=== PATIENT | male | born 1945 | race Hispanic/Latino ===

== ENCOUNTER 2019-11-21 22:33 | Inpatient (IN) | payer MEDICARE, OTHER ==
[~2019-11-21] VITALS: Ht 165.1 cm; Wt 79.3 kg
[2019-11-21 23:01] LABS: BASOPHILS % (AUTO) 0.6 % (0.0-5.0); EOSINOPHILS % (AUTO) 4.6 % (0.0-8.0); HEMATOCRIT 39.9 % (42-54); LYMPHOCYTES % (AUTO) 30.3 % (21.0-51.0); MEAN CORPUSCULAR HEMOGLOBIN 32.9 pg (27.0-33.0); MEAN CORPUSCULAR HGB CONC 33.3 g/dL (32.0-36.0); MEAN CORPUSCULAR VOLUME 98.8 fL (79-99); MONOCYTES % (AUTO) 8.3 % (3.0-13.0); NEUTROPHILS % (AUTO) 55.8 % (40.0-77.0); PLATELET COUNT (AUTO) 199 K/uL (130-400); RED BLOOD CELL COUNT(AUTO) 4.04 MIL/uL (4.50-6.20); RED CELL DISTRIBUTION WIDTH 12.6 % (11.0-15.5); WHITE BLOOD COUNT (AUTO) 6.7 K/uL (4.8-10.8)
[2019-11-21 23:20] LABS: CREATININE 0.9 mg/dL (0.5-1.5); POTASSIUM 3.8 mmol/L (3.5-5.1)
[2019-11-21 23:21] LABS: INR 0.87 (0.85-1.15); PARTIAL THROMBOPLASTIN TIME 24.3 SEC (26.3-35.5); PROTHROMBIN TIME 9.4 SEC (9.6-11.6)
[2019-11-21 23:25] LABS: ALBUMIN 3.5 g/dL (3.5-5.0); BILIRUBIN,TOTAL 0.2 mg/dL (0.2-1.0); TOTAL PROTEIN, SERUM 7.3 g/dL (6.0-8.3)
[2019-11-21 23:46] LABS: APPEARANCE,URINE Clear (CLEAR); BILIRUBIN,URINE Negative (NEGATIVE); COLOR,URINE Yellow (YELLOW); GLUCOSE, URINE (UA) 500 mg/dL (NEGATIVE); KETONES,URINE Trace mg/dL (NEGATIVE); LEUKOCYTE ESTERASE ,URINE Negative (NEGATIVE); NITRATE,URINE Negative (NEGATIVE); OCCULT BLOOD,URINE Negative (NEGATIVE); PH,URINE 5.5 (5.0-8.0); PROTEIN,URINE Negative (NEGATIVE)
[2019-11-22] MEDS ORDERED: ASPIRIN 81MG TAB.CHEW ONE (00:15)
[2019-11-22 00:31] LABS: BACTERIA,URINE Few /HPF (None Seen); MUCUS,URINE Rare LPF (None Seen); RBC,URINE 0-1 /HPF (0-1); SQUAMOUS EPITHELIAL CELL,UR 0-2 /HPF (0-2)
[2019-11-22] MEDS ORDERED: ONDANSETRON HCL 4 MG/2 ML VIAL IV PRN (04:00)
[2019-11-22 05:00] VITALS: BP 165/71
[2019-11-22] MEDS ORDERED: METF-444 PO (05:48)
[2019-11-22] MEDS ORDERED: INSU100I35 SQ (05:48)
[2019-11-22 07:17] VITALS: BP 154/60
[2019-11-22] MEDS ORDERED: FAMOTIDINE/PF 20 MG/2 ML VIAL IV SCH (09:00)
[2019-11-22 10:42] VITALS: BP 162/86
[2019-11-22 15:49] VITALS: BP 186/82
[2019-11-22 16:59] LABS: CHOLESTEROL 154 mg/dL (<200); HDL CHOLESTEROL 99 mg/dL (29-71); LDL DIRECT 91 mg/dL (0-99); TRIGLYCERIDES 190 mg/dL (30-200)
[2019-11-22 17:18] LABS: HEMOGLOBIN A1C 7.9 % (4.0-6.0)
[2019-11-22 19:56] VITALS: BP 155/79
[2019-11-22] MEDS: FAMOTIDINE/PF 20 MG/2 ML VIAL IV SCH (21:03)
[2019-11-22] MEDS: ATORVASTATIN CALCIUM 20 MG TABLET PO SCH (21:04)
[2019-11-23] VITALS (7 sets, daily range): BP systolic 162–177; BP diastolic 57–81
[2019-11-23 04:46] LABS: BASOPHILS % (AUTO) 0.5 % (0.0-5.0); EOSINOPHILS % (AUTO) 3.6 % (0.0-8.0); HEMATOCRIT 38.4 % (42-54); LYMPHOCYTES % (AUTO) 26.4 % (21.0-51.0); MEAN CORPUSCULAR HEMOGLOBIN 33.2 pg (27.0-33.0); MEAN CORPUSCULAR HGB CONC 33.3 g/dL (32.0-36.0); MEAN CORPUSCULAR VOLUME 99.5 fL (79-99); MONOCYTES % (AUTO) 7.2 % (3.0-13.0); NEUTROPHILS % (AUTO) 61.8 % (40.0-77.0); PLATELET COUNT (AUTO) 174 K/uL (130-400); RED BLOOD CELL COUNT(AUTO) 3.86 MIL/uL (4.50-6.20); RED CELL DISTRIBUTION WIDTH 12.4 % (11.0-15.5); WHITE BLOOD COUNT (AUTO) 5.8 K/uL (4.8-10.8)
[2019-11-23 04:50] LABS: CREATININE 0.6 mg/dL (0.5-1.5); POTASSIUM 3.7 mmol/L (3.5-5.1)
[2019-11-23] MEDS: FAMOTIDINE/PF 20 MG/2 ML VIAL IV SCH ×2 (09:00→20:56)
[2019-11-23] MEDS: INSULIN HUMULIN 70/30 100 UNIT/ML 3ML SQ SCH (17:30)
[2019-11-23] MEDS: METFORMIN HCL 500 MG TABLET PO SCH (17:31)
[2019-11-23] MEDS: ATORVASTATIN CALCIUM 20 MG TABLET PO SCH (20:55)
[2019-11-24 03:54] VITALS: BP 164/66
[2019-11-24] MEDS: INSULIN HUMULIN 70/30 100 UNIT/ML 3ML SQ SCH ×2 (07:30→16:35)
[2019-11-24 08:00] VITALS: BP 158/67
[2019-11-24] MEDS: FAMOTIDINE/PF 20 MG/2 ML VIAL IV SCH ×2 (09:30→21:02)
[2019-11-24] MEDS: METFORMIN HCL 500 MG TABLET PO SCH ×2 (09:30→16:33)
[2019-11-24 11:43] VITALS: BP 151/62
[2019-11-24] MEDS: CLOPIDOGREL BISULFATE 75 MG TAB PO SCH (12:15)
[2019-11-24] MEDS: ASPIRIN 325MG EC TAB 325 MG TABLET.DR PO SCH (12:16)
[2019-11-24 16:00] VITALS: BP 147/56
[2019-11-24 16:59] LABS: BASOPHILS % (AUTO) 0.5 % (0.0-5.0); EOSINOPHILS % (AUTO) 2.4 % (0.0-8.0); HEMATOCRIT 42.8 % (42-54); LYMPHOCYTES % (AUTO) 24.2 % (21.0-51.0); MEAN CORPUSCULAR HGB CONC 33.4 g/dL (32.0-36.0); MEAN CORPUSCULAR VOLUME 98.8 fL (79-99); MONOCYTES % (AUTO) 6.9 % (3.0-13.0); NEUTROPHILS % (AUTO) 65.4 % (40.0-77.0); PLATELET COUNT (AUTO) 184 K/uL (130-400); RED BLOOD CELL COUNT(AUTO) 4.33 MIL/uL (4.50-6.20); RED CELL DISTRIBUTION WIDTH 12.3 % (11.0-15.5); WHITE BLOOD COUNT (AUTO) 7.8 K/uL (4.8-10.8)
[2019-11-24 19:00] VITALS: BP 159/55
[2019-11-24] MEDS ORDERED: ATORVASTATIN CALCIUM 40 MG TABLET PO SCH (21:00)
[2019-11-25] VITALS: BP 152/81
[2019-11-25 04:00] VITALS: BP 148/66
[2019-11-25] MEDS: INSULIN HUMULIN 70/30 100 UNIT/ML 3ML SQ SCH ×2 (07:15→18:00)
[2019-11-25 07:21] LABS: ALBUMIN 3.2 g/dL (3.5-5.0); BILIRUBIN,TOTAL 0.5 mg/dL (0.2-1.0); CREATININE 0.8 mg/dL (0.5-1.5); POTASSIUM 3.6 mmol/L (3.5-5.1); TOTAL PROTEIN, SERUM 6.8 g/dL (6.0-8.3)
[2019-11-25 08:09] VITALS: BP 158/70
[2019-11-25] MEDS: ASPIRIN 325MG EC TAB 325 MG TABLET.DR PO SCH (08:40)
[2019-11-25] MEDS: FAMOTIDINE/PF 20 MG/2 ML VIAL IV SCH (08:40)
[2019-11-25] MEDS: METFORMIN HCL 500 MG TABLET PO SCH ×2 (08:40→17:58)
[2019-11-25] MEDS: CLOPIDOGREL BISULFATE 75 MG TAB PO SCH (08:41)
[2019-11-25 12:27] VITALS: BP 146/85
[2019-11-25 16:05] VITALS: BP 177/73
[2019-11-25] MEDS ORDERED: CLOP75TA14 PO (18:51)
[2019-11-25] MEDS ORDERED: ASPI-1026 PO (18:51)
[2019-11-25] MEDS ORDERED: ATOR20TA65 PO (21:09)
== END 2019-11-25 19:44 | disposition home or self-care (01) | DRG 66 ==
LOC: EDH 22:33 → EDHIP 11-22 03:52 → 3CH 11-22 04:47
PROVIDERS: ADMIT Hospitalist; ATTEND Hospitalist
DX: I63.9 Cerebral infarction, unspecified (principal); I10 Essential (primary) hypertension; E11.65 Type 2 diabetes mellitus with hyperglycemia; Z87.891 Personal history of nicotine dependence; Z79.02 Long term (current) use of antithrombotics/antiplatelets; Z89.9 Acquired absence of limb, unspecified
CPT/HCPCS: 36415; 70450; 70551; 71045; 80048; 80053; 80061; 81001; 82550; 82948; 83036; 83605; 83690; 83880; 84484; 85025; 85610; 85730; 92507; 92522; 92610; 93005; 93306; 93356; 93880; 97039; G0378; J1815; J3490

== ENCOUNTER → 2023-07-10 | Outpatient (CLI) | payer OTHER ==
[~2023-07-10] MED LIST: ASPI-1026 PO; ATOR20TA65 PO; CLOP-31 PO; INSU100I35 SQ; METF-444 PO
== END | disposition home or self-care (01) ==
LOC: RAH 13:07
PROVIDERS: ATTEND Internal Medicine
DX: I35.1 Nonrheumatic aortic (valve) insufficiency (principal); R01.1 Cardiac murmur, unspecified; I51.7 Cardiomegaly
CPT/HCPCS: 93306